=== PATIENT | male | born 1960 | race Caucasian/White ===

== ENCOUNTER 2022-08-11 16:27 | Outpatient (CLI) | payer BC, SELFPAY ==
[2022-08-11 09:29] LABS: Albumin* 4.3 g/dL (3.3-5.0)
[2022-08-11 09:30] LABS: Chloride* 98 mmol/L (96-114); Potassium* 5.3 mmol/L (3.6-5.1); Sodium* 135 mmol/L (135-149)
[2022-08-11 09:32] LABS: Aspartate Amino Transferase* 50 U/L (12-35); Bilirubin Total* 0.4 mg/dL (0.1-1.5); Carbon Dioxide* 31 mmol/L (20-32); Cholesterol* 169 mg/dL (90-199); Creatinine* 1.1 mg/dL (0.5-1.5); Estimated Glomerular Filt Rate 75 ml/min; Total Protein* 7.3 g/dL (6.0-8.3)
[2022-08-11 09:33] LABS: Alanine Aminotransferase* 81 U/L (4-50); Alkaline Phosphatase* 111 U/L (40-150); Blood Urea Nitrogen* 13 mg/dL (7-30); Calcium* 9.5 mg/dL (8.4-10.6); Glucose* 129 mg/dL (60-115); HDL Cholesterol* 66 mg/dL (>=40); LDL Cholesterol Calculated 88 mg/dL (<100); Triglycerides* 76 mg/dL (40-149)
[2022-08-11 10:01] LABS: PSA Screen* 1.55 ng/mL (0.10-4.00)
== END 2022-08-11 16:28 | disposition home or self-care (01) ==
PROVIDERS: PCP Internal Medicine; Visit Provider Internal Medicine
DX: Z00.00 Encounter for general adult medical examination without abnormal findings (principal); I10 Essential (primary) hypertension; E66.9 Obesity, unspecified; N40.0 Benign prostatic hyperplasia without lower urinary tract symptoms; Z13.6 Encounter for screening for cardiovascular disorders
CPT/HCPCS: 80053; 80061; 84153

== ENCOUNTER 2022-09-15 08:32 | Outpatient (CLI) | payer BC, SELFPAY ==
--- OUTSIDE RECORDS SUMMARY | 2022-09-15 08:34 | XMS_ITS | Clinical Summary ---
:1960 Author Organization [id number] [place] [address] Care Team Providers Name Role Phone Ollie Mcconnell MD Primary Care Provider Allergies No known active allergies Medications Medication Sig Dispensed Refills Start Date End Date Status omega-3 fatty Take by mouth. 0 11/26/2016 Active acids-vitamin E (FISH OIL) 1,000 mg cap sildenafil citrate Take 1 tablet 6 tablet 5 12/15/2018 Active (VIAGRA) 50 mg by mouth once tabletIndications: ED daily if (erectile dysfunction) of needed for organic origin Erectile Dysfunction. Take 30min to 4 hours before sexual activity. Max 100mg/24hr sildenafil citrate Take 1 tablet 10 tablet 11 07/24/2020 Active (VIAGRA) 100 mg by mouth once tabletIndications: ED daily if (erectile dysfunction) of needed for organic origin Erectile Dysfunction. Take 30min to 4 hours before sexual activity. Max 100mg/24hr. hydroCHLOROthiazide Take 1 tablet 90 tablet 0 10/23/2020 Active (HCTZ) 25 mg by mouth once tabletIndications: HTN daily. (hypertension) venlafaxine (EFFEXOR XR) TAKE ONE 30 capsule. 0 03/28/2021 Active 75 mg cp24 CAPSULE BY Extended-Release MOUTH ONE TIME capsuleIndications: DAILY Moderate episode of recurrent major depressive disorder (HC) tamsulosin (FLOMAX) 0.4 Take 1 Capsule 90 capsule. 0 1 Active mg capsuleIndications: (0.4 mg) by Prostate enlargement mouth once daily after a meal. atenoloL (TENORMIN) 50 mg Take 1 Tablet 90 tablet. 0 1 Active tabletIndications: (50 mg) by Essential hypertension mouth once daily. losartan (COZAAR) 100 mg Take 1 Tablet 60 Tablet 0 07/02/2021 Active tabletIndications: (100 mg) by Essential hypertension mouth once daily. Active Problems Problem Noted Date Adenomatous colon polyp 02/09/2015 Overview: Colonoscopy 01/2015 polyps repeat in 5 ye ars Dysthymic disorder 01/18/2014 Unspecified essential hypertension 01/19/2007 Migraine, unspecified, without mention of intractable migraine without 01/19/2007 mention of status migrainosus Depressive disorder, not elsewhere classified 01/20/20 07 Immunizations Name Administration Dates Next Due Td (Age >=7 Years) 12/02/2004 Tdap 01/08/2015 Family History Medical History Relation Name Comments Hypertension Father Hypertension Mother Other Mother migraines Relation Name Status Comments Father Mother Social History Tobacco Use Types Packs/Day Years Used Date Never Smoker Smokeless Tobacco: Never Used Tobacco Cessation: Counseling Given: Yes Alcohol Use Standard Drinks/Week Comments Yes 36 (1 standard drink = 0.6 oz pure alcoh ol) Alcohol Habits Answer Date Recorded How often do you have a drink containing 4 or more times a w levelock 04/06/2020 alcohol? How many drinks containing alcohol do you have 5 or 6 04/06/2020 on a typical day when you are drinking? How often do you have six or more drinks on one Weekly 04/06/2020 occasion? Comment: Not asked Sex Assigned at Date Recorded Not on file Obstetrics History Last Filed Vital Signs Vital Sign Reading Time Taken Comments Blood Pressure 126/74 08/10/2020 2:09 PM CDT Pulse 62 08/10/2020 1:55 PM CDT Temperature 37.1 ??C (98.7 ??F) 08/10/2020 1:55 PM CDT Respiratory Rate 14 01/15/2017 10:54 AM CDT Oxygen Saturation 96% 08/10/2020 1:55 PM CDT Inhaled Oxygen Concentration - - Weight 101.6 kg (224 lb) 08/10/2020 1:55 PM CDT Height 176.5 cm (5' 9.49) 08/10/2020 1:55 PM CDT Body Mass Index 32.62 08/10/2020 1:55 PM CDT Plan of Treatment Health Maintenance Due Date Last Done Comments COVID-19 vaccine series (#1) 1960 Hepatitis C screening for age 0503/13/1976 18-79 Zoster (shingles) series for age 0503/13/2008 50+ (1 of 2) Colonoscopy through age 75 02/07/2020 02/06/2015 BMI (ht and wt on same day) for 08/10/2021 08/10/2020, 06/27, age 18+ 04/06/2020, Additional history exists Depression screening for age 12+ 08/13/2021 08/13/2020, , 04/06/2020, Additional history exists Influenza for age 50-64 06/26/2022 11/24/2011 (Declined) Tetanus booster 01/08/2025 01/08/2015, 12/02/2004 Lipids for age 45-75 04/06/2025 04/06/2020, 12/15/2018, 12/04/2017, Additional history exists Tdap Completed 01/08/2015 Results Not on filefrom Last 3 Months Insurance Payer Benefit Plan / Subscriber ID Effective Dates Phone Addre ss Type Group BLUE [employer] BL[employer] OF [id number] 2020-Presen [address] [facility] [place] [place] [address] Care Teams School Bus Monitor Relationship Specialty Start Date End Date Ollie Mcconnell MD PCP - General Internal Medicine 03/28/211999 [place] [address]
== END 2022-09-15 08:33 | disposition home or self-care (01) ==
LOC: OP CLINIC 08:33
PROVIDERS: PCP Internal Medicine; Visit Provider Surgery
DX: Z12.11 Encounter for screening for malignant neoplasm of colon (principal); K63.5 Polyp of colon; Z86.010 Personal history of colon polyps
CPT/HCPCS: 45385; 88305; 99153; J2250; J3010

== ENCOUNTER 2025-03-16 10:40 | Outpatient (CLI) | payer MEDICARE, SELFPAY | END 2025-03-16 10:41 | disposition home or self-care (01) | PROVIDERS: PCP Internal Medicine; Visit Provider Internal Medicine | DX: I10 Essential (primary) hypertension (principal); N40.0 Benign prostatic hyperplasia without lower urinary tract symptoms; Z12.5 Encounter for screening for malignant neoplasm of prostate | CPT/HCPCS: 80053; 80061; G0103 ==